=== PATIENT | female | born 1955 | race Caucasian/White ===

== ENCOUNTER → 2018-02-15 | Day surgery (SDC) | payer OTHER ==
[~2018-02-15] MED LIST: CLINDAMYCIN 900MG PREMIX 50 ML IV; IV RINGERS,LACTATED 1000ML 1,000 ML IV; LIDOCAINE 1% PF 2 ML VIAL. ID; LIDOCAINE 2% PF Vial for OR 5 ML VIAL.; MIDAZOLAM HCL/PF 2 MG/2 ML VIAL.; ONDANSETRON PF 4 MG/2 ML VIAL. IV; PROCHLORPERAZINE 10 MG/2 ML VIAL. IV; PROPOFOL 20 ML IV; fentaNYL PF VIAL 100 MCG/2 ML VIAL IV; fentaNYL PF VIAL 250 MCG/5 ML VIAL
[2018-02-15] MEDS: LIDOCAINE 1% PF 2 ML VIAL. INJ (09:44)
[2018-02-15] MEDS: SCOPOLAMINE 1.5MG PATCH. TD (09:47)
[2018-02-15] MEDS: BUPIVACAINE 0.5% 50 ML VIAL. (10:18)
[2018-02-15] MEDS: HYDROmorphone 2 MG TABLET PO (11:31)
== END | disposition home or self-care (01) ==
LOC: SURG 08:46
DX: M65.332 Trigger finger, left middle finger (principal); M65.331 Trigger finger, right middle finger; M65.341 Trigger finger, right ring finger; Z98.890 Other specified postprocedural states; Z90.49 Acquired absence of other specified parts of digestive tract; Z90.710 Acquired absence of both cervix and uterus; Z90.721 Acquired absence of ovaries, unilateral; F41.9 Anxiety disorder, unspecified; Z85.828 Personal history of other malignant neoplasm of skin; Z88.1 Allergy status to other antibiotic agents; Z88.5 Allergy status to narcotic agent; Z88.8 Allergy status to other drugs, medicaments and biological substances; Z79.899 Other long term (current) drug therapy
CPT/HCPCS: 26055; J2001; J2250; J2704; J3010; J3490

== ENCOUNTER → 2020-07-12 | Outpatient (CLI) | payer OTHER ==
[2018-02-15 11:55] VITALS: BP 121/62
[~2020-07-12] MED LIST changes: +ALPR0.5T PO; +CALC-178 PO; -CLINDAMYCIN 900MG PREMIX 50 ML IV; +HYDR2TAB31 PO; +IBUP-1670 PO; -IV RINGERS,LACTATED 1000ML 1,000 ML IV; +LEVO100T5 PO; -LIDOCAINE 1% PF 2 ML VIAL. ID; -LIDOCAINE 2% PF Vial for OR 5 ML VIAL.; -MIDAZOLAM HCL/PF 2 MG/2 ML VIAL.; -ONDANSETRON PF 4 MG/2 ML VIAL. IV; -PROCHLORPERAZINE 10 MG/2 ML VIAL. IV; -PROPOFOL 20 ML IV; +ZOLM5TAB13 PO; -fentaNYL PF VIAL 100 MCG/2 ML VIAL IV; -fentaNYL PF VIAL 250 MCG/5 ML VIAL
== END ==
LOC: LAB 09:45
PROVIDERS: ATTEND Internal Medicine Gastroenterology
DX: Z01.812 Encounter for preprocedural laboratory examination (principal); Z86.010 Personal history of colon polyps; Z20.828 Contact with and (suspected) exposure to other viral communicable diseases
CPT/HCPCS: U0003

== ENCOUNTER → 2020-07-15 | Day surgery (SDC) | payer OTHER ==
[~2020-07-15] MED LIST changes: +IV RINGERS,LACTATED 1000ML 1,000 ML IV SCH; +LIDOCAINE 2% PF 5 ML VIAL. ONE; +PROPOFOL 10 MG/ML (20ML) VIAL. IV ONE
[2020-07-15 10:11] VITALS: BP 111/54
--- NOTE | 2020-07-15 10:46 | PREOP HP ---
DATE OF SERVICE: 07/15/2020 REQUESTING PHYSICIAN: Lynnette Varela. PRIMARY CARE PHYSICIAN: Lynnette Varela. REASON FOR PROCEDURE: Dysphagia and colorectal cancer screening. HISTORY OF PRESENT ILLNESS: This is a 65-year-old female who presents today for colonoscopy. She also is having dysphagia after her thyroidectomy. ALLERGIES: 1. CLINDAMYCIN. 2. STADOL. 3. WHEAT. 4. AMOXICILLIN. 5. HYDROCODONE. 6. TORADOL. PAST MEDICAL HISTORY: 1. Traumatic brain injury. 2. Family history of polyps. 3. Personal history of polyps. 4. Personal history of thyroid cancer, status post thyroidectomy. FAMILY MEDICAL HISTORY: Significant for colon polyps in her father. SOCIAL HISTORY: No tobacco, alcohol or IV drug abuse. MEDICATIONS: MAR reviewed. REVIEW OF SYSTEMS: A 13-point review of systems was done. It is positive as per HPI and otherwise negative. PHYSICAL EXAMINATION: VITAL SIGNS: She is afebrile and her vital signs are stable. GENERAL: She is a well-developed, well-nourished female, in no apparent distress. HEENT: Oropharynx is clear. CARDIOVASCULAR: S1, S2. LUNGS: Clear. ABDOMEN: Normoactive bowel sounds, soft, nontender, nondistended. EXTREMITIES: No edema. NEUROLOGIC: Awake, alert and oriented x 3. ASSESSMENT AND PLAN: 1. History of colon polyps. The risks and benefits of the colonoscopy including bleeding, perforation, non-diagnosis and sedation were explained and she has agreed to proceed. 2. Dysphagia. We will proceed with an upper endoscopy. MARION LAURA MD DR: VICTORIANO/donte JOB#: [id number] / [id number]
--- NOTE | 2020-07-19 18:06 | PATHOLOGY ---
[facility] Accession Number: [id number] . 01 Material submitted: . PART A: small bowel - SMALL BOWEL BIOPSY PART B: stomach - GASTRIC ANTRUM BODY BIOPSY. Modifiers: body PART C: esophagus - DISTAL ESOPHAGUS BIOPSY. Modifiers: distal PART D: esophagus - MID ESOPHAGUS BIOPSY. Modifiers: mid . 01 Clinical history: . POLYPS, DYSPHAGIA . 02 Diagnosis: A. Small bowel biopsies: - No significant pathologic abnormalities. . B. Gastric biopsies, gastric antrum and body: - Mild chronic gastritis with focal antral mucosal erosion and acute inflammation. . C. 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 . D. Esophageal biopsies, middle esophagus: - No significant pathologic abnormalities. (JPM:jae; 07/19/2020) [facility] [place] 0906 Local . 02 Comment: Sections of the small bowel biopsy reveal segments of duodenal and small intestine mucosa. Where best oriented, the mucosal villi show no sprue-like changes or significant inflammatory changes. . Sections of the gastric biopsy reveal segments of gastric body and gastric antral mucosa. The gastric body mucosa shows superficial congestion and mild chronic inflammation. The gastric antral mucosa shows congestion, mild edema, and mild chronic inflammation with focal superficial mucosal erosion and acute inflammation. A properly controlled immunoperoxidase stain for Helicobacter is negative for Helicobacter organisms. . Sections of the distal esophageal biopsy reveal a minute segment of squamous esophageal mucosa and several segments of columnar lined mucosa showing mild to focal moderate chronic inflammation with focal intestinal metaplasia with goblet cells consistent with Flores's change. There is no dysplasia or evidence of malignancy. . Sections of the middle esophageal biopsy reveal several segments of squamous esophageal mucosa showing no significant pathologic abnormalities. (JPM:jae; 07/19/2020) . Special stain performed: Immunoperoxidase stain for Helicobacter on B1 . 02 Electronically signed: . Kaiser Gresham MD, Pathologist NPI- [id number] . 01 Gross description: . A. Received in formalin labeled "Freeze, Lalita, small bowel BX" are multiple farias-brown soft tissue fragments measuring in aggregate 0.7 x 0.5 x 0.1 cm. The specimen is submitted entirely in A1. . B. Received in formalin labeled "Freeze, Lalita, gastric antrum body BX" are two farias-brown soft tissue fragments measuring in aggregate 0.8 x 0.4 x 0.1 cm. The specimen is submitted entirely in B1. . C. Received in formalin labeled "Freeze, Lalita, distal esophagus BX" are multiple farias-brown soft tissue fragments measuring in aggregate 0.7 x 0.4 x 0.1 cm. The specimen is submitted entirely in C1. . D. Received in formalin labeled "Freeze, Lalita, mid esophagus BX" are multiple farias-brown soft tissue fragments measuring in aggregate 1.0 x 0.3 x 0.1 cm. The specimen is submitted entirely in D1. ([facility] [place]; 07/17/2020) [facility] 07[facility] 1128 Local . 02 Pathologist provided ICD-10: K29.00, K29.50, K31.89, K20.90 . 02 CPT . 807335, 339868, 225987, 250624, [id number] Specimen Comment: A courtesy copy of this report has been sent to [phone], [phone] Specimen Comment: [id number] Specimen Comment: Report sent to / DR SUNSHINE Performed at: 01 [facility] [address], [place] [id number] MD Dino Woodard MD Phone: [phone] Performed at: 02 [facility] [address], [place] [id number] MD Kaiser Gresham MD Phone: [phone]
== END | disposition home or self-care (01) ==
LOC: ENDOS 07:50
PROVIDERS: ATTEND Internal Medicine Gastroenterology
DX: Z12.11 Encounter for screening for malignant neoplasm of colon (principal); R13.10 Dysphagia, unspecified; K64.0 First degree hemorrhoids; D64.9 Anemia, unspecified; K29.50 Unspecified chronic gastritis without bleeding; K20.90 Esophagitis, unspecified without bleeding; K22.2 Esophageal obstruction; F41.9 Anxiety disorder, unspecified; G47.30 Sleep apnea, unspecified; Z85.828 Personal history of other malignant neoplasm of skin; Z85.850 Personal history of malignant neoplasm of thyroid; Z79.899 Other long term (current) drug therapy; Z83.3 Family history of diabetes mellitus; Z83.71 Family history of colonic polyps; Z86.010 Personal history of colon polyps; Z90.49 Acquired absence of other specified parts of digestive tract; Z88.8 Allergy status to other drugs, medicaments and biological substances; Z88.1 Allergy status to other antibiotic agents
CPT/HCPCS: 43239; 43450; 45378; J2704